=== PATIENT | female | born 1995 ===

== ENCOUNTER → 2020-09-25 | Outpatient (CLI) | payer SELFPAY | LOC: M LABSMTC 14:21 | PROVIDERS: ATTEND Pediatrics | DX: Z20.828 Contact with and (suspected) exposure to other viral communicable diseases (principal) ==

== ENCOUNTER → 2020-10-11 | Outpatient (REF) | payer OTHER, SELFPAY | LOC: M LAB REF 10:51 | PROVIDERS: ATTEND Physician Assistant | DX: Z11.59 Encounter for screening for other viral diseases (principal) ==